=== PATIENT | male | born 1950 | race Caucasian/White ===

== ENCOUNTER 2019-12-01 07:27 | Emergency (ER) | payer SELFPAY ==
[2019-12-01 07:32] VITALS: BP 158/93; PULSE 55; RESP 16; TEMP 36.4; O2SAT 93; BMI 25.7
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
[2019-12-01 09:19] VITALS: BP 133/74; PULSE 78; RESP 17; O2SAT 998
== END 2019-12-01 09:27 | disposition home or self-care (01) ==
PROVIDERS: Emergency Provider Registered Nurse
DX: S29.012A Strain of muscle and tendon of back wall of thorax, initial encounter (principal); V89.2XXA Person injured in unspecified motor-vehicle accident, traffic, initial encounter
CPT/HCPCS: 12345; 70450; 71046; 72125; 72128; 99281; 99283

== ENCOUNTER 2020-05-21 11:13 | Outpatient (CLI) | payer SELFPAY ==
--- NOTE | 2020-05-21 11:25 | XR_ITS ---
WS: [id number] Exam: XR cervical spine fl/ex [id number] Date/Time of Exam: 05/21/2020 11:42 AM Reason For Exam: CERVICALGIA Lateral imaging of the cervical spine with flexion and extension views submitted for evaluation. No fracture or dislocation. No sign of subluxation or instability on flexion or extension views. Ther e appears to be limited flexion and extension of the cervical spine. Facet arthropathy noted at all l evels. The disks are relatively well maintained. Paraspinal soft tissues appear normal. XR/XR cervical spine fl/ex [id number] IMPRESSION: 1. No fracture, malalignment or instability identified. 2. Degenerative facet changes.
--- NOTE | 2020-05-21 11:25 | XR_ITS ---
WS: [id number] Exam: XR lumbar spine f/e only [id number] Date/Time of Exam: 05/21/2020 11:42 AM Reason For Exam: LOW BACK PAIN Flexion and extension views of the lumbar spine demonstrate no instability or subluxation. There is m ild spondylosis. The disks are relatively well maintained. Mild facet arthropathy at all levels. Post erior elements are otherwise intact. There are numerous upper abdominal calcifications noted which ar e nonspecific. These could represent renal calculi or other abdominal calcification. XR/XR lumbar spine f/e only [id number] IMPRESSION: 1. Degenerative changes of the lumbar spine. 2. No fracture, malalignment or significant instability. 3. Numerous upper abdominal calcifications. These are nonspecific but might rep resent renal calculi. A KUB might be helpful for further workup if thought to b e clinically warranted.
== END 2020-05-21 11:14 | disposition home or self-care (01) ==
PROVIDERS: PCP Nurse Practitioner Family; Visit Provider Nurse Practitioner
DX: M54.2 Cervicalgia (principal); M54.5 Low back pain
CPT/HCPCS: 72040; 72120

== ENCOUNTER → 2020-10-14 10:16 | Outpatient (BNVA) | payer SELFPAY | PROVIDERS: PCP Nurse Practitioner Family; Visit Provider Specialist | DX: R20.0 Anesthesia of skin (principal); R20.2 Paresthesia of skin; S13.4XXA Sprain of ligaments of cervical spine, initial encounter; M50.90 Cervical disc disorder, unspecified, unspecified cervical region; Y93.9 Activity, unspecified | CPT/HCPCS: 99204 ==

== ENCOUNTER → 2020-11-04 15:01 | Outpatient (BNVA) | payer SELFPAY | PROVIDERS: PCP Nurse Practitioner Family; Referring Provider Specialist; Visit Provider Specialist | DX: G56.03 Carpal tunnel syndrome, bilateral upper limbs (principal); M50.90 Cervical disc disorder, unspecified, unspecified cervical region | CPT/HCPCS: 95910 ==

== ENCOUNTER 2024-05-30 10:22 | Outpatient (CLI) | payer MEDICARE, SELFPAY ==
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
== END 2024-05-30 10:23 | disposition home or self-care (01) ==
PROVIDERS: PCP Nurse Practitioner Family; Visit Provider Nurse Practitioner Family
DX: J06.9 Acute upper respiratory infection, unspecified (principal)
CPT/HCPCS: 71046